=== PATIENT | female | born 1985 | race Caucasian/White ===

== ENCOUNTER 2020-05-10 12:09 | Emergency (ER) | payer SELFPAY ==
[2020-05-10] MEDS ORDERED: SODIUM CHLORIDE 0.9% 1000ML 1,000 ML IVS ONE (12:26)
[2020-05-10] MEDS ORDERED: IBUPROFEN 200 MG TAB PO ONE (12:27)
[2020-05-10] MEDS ORDERED: diphenhydrAMINE HCL 50 MG/ML VIAL IV STA (12:27)
[2020-05-10] MEDS ORDERED: METOCLOPRAMIDE HCL INJ 10 MG/2 ML VIAL IV ONE (12:27)
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
[2020-05-10] MEDS ORDERED: METOCLOPRAMIDE HCL INJ 10 MG/2 ML VIAL ONE (12:46)
[2020-05-10 13:39] VITALS: BP 123/81; TEMP 97.8; O2SAT 97
== END 2020-05-10 13:33 | disposition home or self-care (01) ==
LOC: ER 12:09
DX: G43.811 Other migraine, intractable, with status migrainosus (principal); Z88.8 Allergy status to other drugs, medicaments and biological substances; Z88.5 Allergy status to narcotic agent
CPT/HCPCS: J1200; J2765; J7030